=== PATIENT | male | born 1950 | race Caucasian/White ===

== ENCOUNTER 2024-09-06 09:22 | Day surgery (SDC) | payer MEDICARE, OTHER ==
[2024-09-06] MEDS ORDERED: BUPIVACAINE 0.5% VIAL IJ ONE (09:23)
[2024-09-06] MEDS ORDERED: Depo-Medrol 40 MG/ML IM ONE (09:23)
[2024-09-06] MEDS ORDERED: propofoL IV ONE (12:01)
--- NOTE | 2024-09-06 13:09 | XRAY ---
Indication: Bilateral SI joint injection. Intraoperative fluoroscopy provided for 22 seconds. 3 digital spot image submitted for interpretation demonstrates posterior needle tips projecting over expected left and right SI joints. Small amount of contrast injected for needle tip placement. Correlate with intraoperative findings/report.
--- NOTE | 2024-09-06 13:53 | XRAY ---
22 seconds of fluoroscopy was used in surgery for a bilateral sacroiliac joint injection.
== END 2024-09-06 12:28 | disposition home or self-care (01) ==
LOC: SDC-PAIN 09:22
PROVIDERS: ATTEND Psychiatry & Neurology Pain Medicine
DX: M46.1 Sacroiliitis, not elsewhere classified (principal); M53.3 Sacrococcygeal disorders, not elsewhere classified
CPT/HCPCS: 27096; 72202; 93005; 99100; J2704; Q9966